=== PATIENT | female | born 1950 | race Caucasian/White ===

== ENCOUNTER → 2018-09-02 | Outpatient (CLI) | payer MEDICARE, OTHER ==
[~2018-09-02] MED LIST: CELEBREX 200MG200 MG PO; COLACE 100100 MG/CAP PO; NEURONTIN100 MG/CAP PO; TENORMIN 5050 MG/TAB PO; ULTRAM 50MG TAB50 MG PO
== END ==
LOC: COL.RAD 08-31 09:00
DX: M19.012 Primary osteoarthritis, left shoulder (principal)

== ENCOUNTER 2023-10-15 18:24 | Inpatient (IN) | payer MEDICARE, OTHER ==
[~2023-10-15] VITALS: Ht 163.8 cm; Wt 69.5 kg
[2023-10-15 19:17] LABS: BASO # 0.1 K/mm3 (0.0-0.2); BASO % 0.7 % (0.0-2.0); EOS # 0.2 K/mm3 (0.0-0.7); EOS % 2.6 % (0.0-4.0); GRAN # 5.9 K/mm3 (1.4-6.5); GRAN % 70.3 % (42.2-75.2); HEMOGLOBIN 12.3 g/dl (12.5-16.0); LYMPH # 1.7 K/mm3 (1.2-3.4); LYMPH % 19.8 % (20.0-51.0); MEAN CELL VOLUME 94 fl (80.0-100.0); MEAN CORPUSCULAR HEMOGLOBIN 32 pg (27-31); MEAN CORPUSCULAR HGB CONC 33 g/dl (33.0-37.0); MEAN PLATELET VOLUME 9.8 fl (7.4-10.4); MONO # 0.5 K/mm3 (0.1-0.6); MONO % 5.9 % (1.7-9.3); PLATELET COUNT 290 K/mm3 (130-400); RED BLOOD COUNT 3.91 M/mm3 (4.10-5.30); REDCELL DISTRIBUTION WIDTH-CV 11.9 % (11.5-14.5)
[2023-10-15 19:30] LABS: HEMATOCRIT 36.8 % (37.0-47.0)
[2023-10-15 19:34] LABS: ALANINE AMINOTRANSFERASE 20 U/L (0-55); ALKALINE PHOSPHATASE 64 U/L (40-150); ANION GAP 12 mmol/L (7-16); AST,SGOT 19 U/L (5-34); BILIRUBIN,TOTAL 0.3 mg/dL (0.2-1.2); BLOOD UREA NITROGEN 17 mg/dL (10-20); CALCIUM 9.8 mg/dL (8.4-10.2); CARBON DIOXIDE 27 mmol/L (23-31); CHLORIDE 103 mmol/L (98-107); CREATININE, serum 0.83 mg/dL (0.57-1.11); GLUCOSE 111 mg/dL (70-99); POTASSIUM 3.2 mmol/L (3.5-4.5); SODIUM 142 mmol/L (136-145); TOTAL PROTEIN 6.5 gm/dL (6.2-8.1)
[2023-10-15 19:40] LABS: TROPONIN-I < 0.010 ng/mL (0.00-0.033)
[2023-10-15] MEDS ORDERED: Morphine 4 MG/ML VIAL IV ONE (19:45)
[2023-10-15] MEDS ORDERED: LIPITOR 40MG TA40 MG PO (21:10)
[2023-10-15] MEDS ORDERED: HCTZ 25MG TAB25 MG PO (21:11)
[2023-10-15] MEDS ORDERED: DESYREL 100MG100 MG PO (21:12)
[2023-10-15] MEDS ORDERED: traMADol 50 MG TAB PO SCH (21:38)
[2023-10-15] MEDS ORDERED: Gabapentin 100 MG CAP PO SCH (21:38)
[2023-10-15] MEDS ORDERED: Atorvastatin 40 MG TAB PO SCH (21:39)
[2023-10-15] MEDS ORDERED: traZODone 100 MG TAB PO PRN (21:45)
[2023-10-15] MEDS ORDERED: Ondansetron 4 MG/2 ML VIAL IV PRN (23:45)
[2023-10-15] MEDS ORDERED: Potassium Bicarbonate/Citrate 20 MEQ Effervescent TAB PO ONE (23:45)
[2023-10-15] MEDS ORDERED: Acetaminophen 325 MG TAB PO PRN (23:45)
[2023-10-16] VITALS (117 sets, daily range): BP systolic 11–134; BP diastolic 60–72; PULSE 61–63; TEMP 97.4–97.8; O2SAT 94–100
--- NOTE | 2023-10-16 07:29 | NUR ---
Bedside report received from NENITA Angeles. Pt is currently awake resting in bed at this time with no complaints. Call light within reach.
[2023-10-16] MEDS ORDERED: Celecoxib 200 MG CAP PO SCH (09:00)
--- NOTE | 2023-10-16 09:15 | NUR ---
Call from ICU regarding pt telemetry stating that pt heart rate at 28 bpm then back into low 50s bpm. Dr. Hilton notified verbally.
[2023-10-16 09:18] LABS: BASO % 0.5 % (0.0-2.0); EOS # 0.3 K/mm3 (0.0-0.7); EOS % 3.7 % (0.0-4.0); GRAN # 4.8 K/mm3 (1.4-6.5); GRAN % 64.8 % (42.2-75.2); HEMOGLOBIN 11.4 g/dl (12.5-16.0); LYMPH # 1.7 K/mm3 (1.2-3.4); LYMPH % 23.5 % (20.0-51.0); MEAN CELL VOLUME 91 fl (80.0-100.0); MEAN CORPUSCULAR HEMOGLOBIN 32 pg (27-31); MEAN CORPUSCULAR HGB CONC 35 g/dl (33.0-37.0); MEAN PLATELET VOLUME 10.1 fl (7.4-10.4); MONO # 0.5 K/mm3 (0.1-0.6); MONO % 7.2 % (1.7-9.3); PLATELET COUNT 246 K/mm3 (130-400); RED BLOOD COUNT 3.57 M/mm3 (4.10-5.30); REDCELL DISTRIBUTION WIDTH-CV 11.7 % (11.5-14.5)
[2023-10-16 09:22] LABS: ANION GAP 10 mmol/L (7-16); BLOOD UREA NITROGEN 12 mg/dL (10-20); CALCIUM 8.9 mg/dL (8.4-10.2); CARBON DIOXIDE 30 mmol/L (23-31); CHLORIDE 98 mmol/L (98-107); GLUCOSE 90 mg/dL (70-99); MAGNESIUM 1.6 mg/dL (1.6-2.6); POTASSIUM 3.3 mmol/L (3.5-4.5); SODIUM 138 mmol/L (136-145)
[2023-10-16 09:23] LABS: HEMATOCRIT 32.5 % (37.0-47.0)
[2023-10-16 09:29] LABS: TROPONIN-I < 0.010 ng/mL (0.00-0.033)
--- NOTE | 2023-10-16 09:36 | NUR ---
bead worker sewing met with pt and daughter, Candy at bedside to discuss discharge planning. Pt reports she lives with her , Cipriano [phone] in [place]. She sees Dr. Lloyd and obtaisn medications from [facility] with no difficulties. Pt states she is independent with ADLS and has a FWW at home if needed for DME. She has a [facility] at home listing her and daughter. Her is unable to bring it in due to him having a recent surgery. Pt intends to return home at discharge. PT/OT Pending Discharge Plan: Home, pending evals
[2023-10-16] MEDS ORDERED: Magnesium Sulfate 4% 50 ML IV ONE (10:00)
[2023-10-16] MEDS ORDERED: Potassium Bicarbonate/Citrate 20 MEQ Effervescent TAB PO SCH (10:00)
[2023-10-16] MEDS ORDERED: *Potassium Replacement Protocol MC SCH (10:00)
[2023-10-16] MEDS ORDERED: Polyethylene Glycol 3350 17 GM PDS PO SCH (10:41)
--- NOTE | 2023-10-16 12:17 | NUR ---
Data: Patient accepted [facility] visit offered during [facility] rounds. Patient and [facility] spoke of several topics, which included her understanding of her diagnoses thus far; her granddaugher and great-grandson; and her 's recent shoulder surgery. Nurse brought her some IV medication. Physical Therapy arrived for cares. Assessment: Patient had a lot on her mind and needed conversation to help her work through it. Plan of Care: [facility] prayed for Patient and left to allow Physical Therapy to visit her.
[2023-10-16] MEDS ORDERED: Atropine 1 MG/10 ML SYRINGE IV PRN (13:00)
--- NOTE | 2023-10-16 13:44 | NUR ---
Pt transferred to ICU02. Telephone report given to NENITA Hodge.
[2023-10-16] MEDS ORDERED: Morphine 4 MG/ML VIAL IV PRN (18:15)
[2023-10-16] MEDS ORDERED: hydroCHLOROthiazide 25 MG TAB PO SCH (19:00)
[2023-10-17] VITALS (39 sets, daily range): BP systolic 146; BP diastolic 66; PULSE 67; TEMP 97.2; O2SAT 90–99
[2023-10-17 05:51] LABS: BASO # 0.1 K/mm3 (0.0-0.2); BASO % 0.7 % (0.0-2.0); EOS # 0.4 K/mm3 (0.0-0.7); EOS % 5.6 % (0.0-4.0); GRAN # 4.3 K/mm3 (1.4-6.5); GRAN % 61.5 % (42.2-75.2); HEMOGLOBIN 12.1 g/dl (12.5-16.0); LYMPH # 1.7 K/mm3 (1.2-3.4); LYMPH % 24.9 % (20.0-51.0); MEAN CELL VOLUME 90 fl (80.0-100.0); MEAN CORPUSCULAR HEMOGLOBIN 31 pg (27-31); MEAN CORPUSCULAR HGB CONC 35 g/dl (33.0-37.0); MEAN PLATELET VOLUME 9.8 fl (7.4-10.4); MONO # 0.5 K/mm3 (0.1-0.6); MONO % 7.2 % (1.7-9.3); PLATELET COUNT 247 K/mm3 (130-400); RED BLOOD COUNT 3.86 M/mm3 (4.10-5.30); REDCELL DISTRIBUTION WIDTH-CV 11.6 % (11.5-14.5)
[2023-10-17 05:53] LABS: HEMATOCRIT 34.7 % (37.0-47.0)
[2023-10-17 06:10] LABS: CALCIUM 8.9 mg/dL (8.4-10.2); CREATININE, serum 0.71 mg/dL (0.57-1.11); POTASSIUM 3.8 mmol/L (3.5-4.5)
[2023-10-17] MEDS ORDERED: Potassium Bicarbonate/Citrate 20 MEQ Effervescent TAB PO ONE (07:15)
[2023-10-17] MEDS ORDERED: Magnesium Sulfate 4% 50 ML IV ONE (10:45)
--- NOTE | 2023-10-17 14:30 | NUR ---
Right leg cast removed and a boot was placed per Dr. Bowers orders. PT at bedside and assisted patient up from bed and ambulated for several minutes in the room. Patient did report pain with weight bearing, but otherwise tolerated well.
[2023-10-17] MEDS ORDERED: Magnesium Oxide 400 MG TAB PO SCH (17:00)
--- NOTE | 2023-10-17 19:00 | NUR ---
REPORT RECEIVED FROM NENITA PASTOR. PATIENT RESTING IN BED. NO SIGNS OF ACUTE DISTRESS NOTED. HEART RATE IS NORMAL SINUS IN THE 60-70'S.
[2023-10-18] VITALS (12 sets, daily range): BP systolic 114–130; BP diastolic 56–78; PULSE 68–77; TEMP 97.7–98.5; O2SAT 88–97
[2023-10-18 04:59] LABS: BASO % 0.5 % (0.0-2.0); EOS # 0.4 K/mm3 (0.0-0.7); GRAN # 4.5 K/mm3 (1.4-6.5); GRAN % 59.6 % (42.2-75.2); HEMOGLOBIN 12.7 g/dl (12.5-16.0); LYMPH # 2.1 K/mm3 (1.2-3.4); MEAN CELL VOLUME 92 fl (80.0-100.0); MEAN CORPUSCULAR HEMOGLOBIN 32 pg (27-31); MEAN CORPUSCULAR HGB CONC 35 g/dl (33.0-37.0); MEAN PLATELET VOLUME 9.9 fl (7.4-10.4); MONO # 0.6 K/mm3 (0.1-0.6); MONO % 7.6 % (1.7-9.3); PLATELET COUNT 258 K/mm3 (130-400); RED BLOOD COUNT 3.97 M/mm3 (4.10-5.30); REDCELL DISTRIBUTION WIDTH-CV 11.6 % (11.5-14.5)
[2023-10-18 05:00] LABS: HEMATOCRIT 36.4 % (37.0-47.0)
[2023-10-18 05:16] LABS: CALCIUM 8.8 mg/dL (8.4-10.2); CREATININE, serum 0.75 mg/dL (0.57-1.11)
--- NOTE | 2023-10-18 08:40 | NUR ---
RECEIVED REPORT FROM NIGHTSHIFT RNTILA. PATIENT RESTING IN BED WITH EYES CLOSED, BED IN A LOW POSITION. CALL LIGHT WITHIN REACH.
--- NOTE | 2023-10-18 08:45 | NUR ---
HEAD TO TOE ASSESSMENT COMPLETED. PATIENT IS ALERT AND ORIENTATED. PUPILS EQUAL AND REACTIVE. HEART SOUNDS REGULAR WITH S1 AND S2 NOTED. LUNG SOUNDS CLEAR BILATERALLY IN UPPER AND LOWER LOBES. BOWEL SOUNDS ACTIVE X4. PULSES EQUAL BILATERALLY IN UPPER LOBES. RIGHT FOOT IN A BOOT D/T FX. PATIENT REPORTS PAIN IS UNDER CONTROL AT THIS TIME. FAMILY PRESENT AT BEDSIDE. BED IN A LOW POSITION. CALL LIGHT WITHIN REACH.
[2023-10-18] MEDS ORDERED: VITAMIN D31000 I1 PO (09:26)
[2023-10-18] MEDS ORDERED: K-DUR 10 MEQ T10 MEQ PO (09:27)
--- NOTE | 2023-10-18 09:44 | NUR ---
REPORT CALLED TO RENETTA EGG CASER AT 0942. PATIENT WILL BE TRANSFERRING TO ROOM 343.
--- NOTE | 2023-10-18 10:12 | NUR ---
PATIENT TRANSFERRED TO SURGICAL ROOM 343 VIA WHEELCHAIR. OFF ICU UNIT AT 1000. PATIENT ACCOMPANIED TO NEW ROOM BY THIS NURSE, EDGAR - GREENSKEEPER LABORER, AND PATIENT'S FAMILY.
--- NOTE | 2023-10-18 12:00 | NUR ---
Pt up recently from ICU. Pt doing okay, pain complaints to her right foot. PRN pain medication given. Will get walking shoe for pt as she stated the boot is really heavy for her. Pt did have family with her when she arrived to the floor. Oriented her to her room
--- NOTE | 2023-10-18 15:23 | NUR ---
Pt doing okay, PRN pain medication working okay. Ice pack placed to right foot at this time
--- NOTE | 2023-10-18 20:00 | NUR ---
Assessment complete. A&Ox4. Denies nausea/shortness of breath. TELE reporting SR. VS stable. Left AC INT flushes without difficulty. NORCO given for chronic back pain rated 7/10 on pain scale described as constant throbbing. Walking shoe to right foot. Ambulates well with walker/gait agrawal/stand by assist. Plan of care discussed for this shift to include meds/pain control/NPO at 0000 for cards eval. Verbalizes understanding. Call light in reach. Will monitor.
[2023-10-19] VITALS (8 sets, daily range): BP systolic 120–158; BP diastolic 69–88; PULSE 73–105; TEMP 97.7–98.2
--- NOTE | 2023-10-19 00:26 | NUR ---
Resting eyes closed. No s/s of pain or discomfort noted. Will monitor.
--- NOTE | 2023-10-19 04:12 | NUR ---
Patient called with c/o pain to right foot and back-rating pain 7/10 on pain scale-described as throbbing. Raymond given per dr tapia. Patient questioning if time is set for stress test and loop recorder. Informed time is not currently set. States she has questions about the loop recorder placement and is not ready to sign consent. Consent is printed on front of chart. Will pass on to day shift that patient still needs to sign after speaking to cards.
--- NOTE | 2023-10-19 05:44 | NUR ---
Patient had an unevenful night. Denied nausea/shortness of breath. C/O pain to back/foot and received norco with good control. Has remained NPO since 0000. INT to left AC flushes without difficulty. TELE reporting SR. Denies current needs. Call light in reach. Will monitor.
[2023-10-19 06:32] LABS: BASO % 0.6 % (0.0-2.0); EOS # 0.4 K/mm3 (0.0-0.7); EOS % 5.5 % (0.0-4.0); GRAN # 4.1 K/mm3 (1.4-6.5); GRAN % 64.4 % (42.2-75.2); HEMOGLOBIN 11.8 g/dl (12.5-16.0); LYMPH # 1.4 K/mm3 (1.2-3.4); LYMPH % 22.1 % (20.0-51.0); MEAN CELL VOLUME 93 fl (80.0-100.0); MEAN CORPUSCULAR HEMOGLOBIN 31 pg (27-31); MEAN CORPUSCULAR HGB CONC 34 g/dl (33.0-37.0); MEAN PLATELET VOLUME 9.7 fl (7.4-10.4); MONO # 0.5 K/mm3 (0.1-0.6); MONO % 7.2 % (1.7-9.3); PLATELET COUNT 251 K/mm3 (130-400); RED BLOOD COUNT 3.79 M/mm3 (4.10-5.30); REDCELL DISTRIBUTION WIDTH-CV 11.6 % (11.5-14.5)
--- NOTE | 2023-10-19 06:36 | NUR ---
Bedside shift report given to NENITA Ruiz.
[2023-10-19 06:45] LABS: HEMATOCRIT 35.1 % (37.0-47.0)
[2023-10-19 06:57] LABS: CALCIUM 8.9 mg/dL (8.4-10.2); CREATININE, serum 0.66 mg/dL (0.57-1.11); POTASSIUM 3.8 mmol/L (3.5-4.5)
--- NOTE | 2023-10-19 08:24 | NUR ---
PT PREPPED FOR LEXISCAN. CONSENT ON CHART, PT WOULD LIKE TO SPEAK WITH PHYSICIAN PRIOR TO PROCEEDURE. AM MEDS GIVEN ORDERED. PT TO HAVE A LOOP RECORDER PLACED TODAY.
[2023-10-19] MEDS ORDERED: Regadenoson 0.08 MG/ML 5 ML SYRINGE IV SCH (09:11)
--- NOTE | 2023-10-19 10:58 | NUR ---
PT IS HAVING LOOP RECORDER PLACED AT BEDSIDE.
[2023-10-19] MEDS ORDERED: CLEOCIN HCL300 MG PO (11:35)
[2023-10-19] MEDS ORDERED: NORCO 325 MG-51 TAB PO (11:49)
[2023-10-19] MEDS ORDERED: MAG-OX 400400 MG/TAB PO (11:49)
--- NOTE | 2023-10-19 13:32 | NUR ---
DISCHARGE INSTRUCTIONS REVIEWED WITH PT AND DAUGHTER. QUESTIONS ANSWERED. PT LEFT PER WHEEL CHAIR WITH STAFF.
[2023-10-19] MEDS ORDERED: Clindamycin 150 MG CAP PO SCH (16:00)
== END 2023-10-19 13:42 | disposition home or self-care (01) | DRG 262 ==
LOC: COL.ER 18:24 → MEDICAL 21:37 → ICU 10-16 12:58 → SURG 10-18 10:30
PROVIDERS: Internal Medicine; Nurse Practitioner; ADMIT Internal Medicine
PROC: 0JH632Z Insertion of Monitoring Device into Chest Subcutaneous Tissue and Fascia, Percutaneous Approach (ICD-10-PCS; principal; 2023-10-19)
DX: R00.1 Bradycardia, unspecified (principal); E87.6 Hypokalemia; E83.42 Hypomagnesemia; I10 Essential (primary) hypertension; S92.331A Displaced fracture of third metatarsal bone, right foot, initial encounter for closed fracture; I08.1 Rheumatic disorders of both mitral and tricuspid valves; G62.9 Polyneuropathy, unspecified; M19.90 Unspecified osteoarthritis, unspecified site; W18.30XA Fall on same level, unspecified, initial encounter; Y92.000 Kitchen of unspecified non-institutional (private) residence as the place of occurrence of the external cause; E78.5 Hyperlipidemia, unspecified; G89.29 Other chronic pain; M54.9 Dorsalgia, unspecified; G47.00 Insomnia, unspecified; Z79.891 Long term (current) use of opiate analgesic; Z90.710 Acquired absence of both cervix and uterus; Z88.0 Allergy status to penicillin
CPT/HCPCS: A9500-JZ; C1764; G0378; J1650; J2270; J2405; J2785; J3475; L4386

== ENCOUNTER → 2024-05-24 | Outpatient (CLI) | payer MEDICARE, OTHER ==
[~2024-05-24] MED LIST changes: +CLEOCIN HCL300 MG PO; +DESYREL 100MG100 MG PO; +HCTZ 25MG TAB25 MG PO; +K-DUR 10 MEQ T10 MEQ PO; +LIPITOR 40MG TA40 MG PO; +MAG-OX 400400 MG/TAB PO; +NORCO 325 MG-51 TAB PO; +VITAMIN D31000 I1 PO
== END ==
LOC: MC.RAD 08:15
DX: Z12.31 Encounter for screening mammogram for malignant neoplasm of breast (principal)